=== PATIENT | male | born 1960 | race Caucasian/White ===

== ENCOUNTER 2022-01-27 09:25 | Inpatient (IN) ==
[2022-01-27] MEDS ORDERED: Ketorolac 60 MG/2 ML VIAL IM ONE (10:39)
[2022-01-27] MEDS ORDERED: *HR* HYDROmorphone (PF) 1 MG/ML SYRINGE IVP ONE (11:10)
[2022-01-27 11:36] LABS: Basophils # 0.1 K/mcL (0.0-0.2); Basophils % 0.6 %; Eosinophils # 0.3 K/mcL (0.0-0.6); Eosinophils % 2.3 %; Hematocrit 40.3 % (37.5-50.1); Immature Granulocytes % 0.4 % (0-4); Lymphocytes # 1.9 K/mcL (0.6-4.6); Lymphocytes % 15.4 %; Mean Corpuscular HGB Conc 32.3 g/dL (31.6-35.5); Mean Corpuscular Hemoglobin 27.5 pg (28.0-33.3); Mean Corpuscular Volume 85.4 fL (83.0-100.0); Mean Platelet Volume 10.3 fL (9.4-12.4); Monocytes # 0.9 K/mcL (0.0-1.3); Monocytes % 7.4 %; Neutrophils # 9.1 K/mcL (1.6-8.9); Platelet Count 437 K/mcL (140-400); Red Blood Count 4.72 M/mcL (4.19-5.50); Red Cell Distribution Width 12.4 % (11.5-14.5); Segmented Neutrophils % 73.9 %; White Blood Count 12.4 K/mcL (4.3-11.1)
[2022-01-27 12:05] LABS: Bacteria,Urine Moderate per hpf (None-Few); Bilirubin,Urine Negative (Negative); Blood,Urine Moderate (Negative); Clarity,Urine Ex.Turbid (Clear); Color,Urine Yellow (Yellow); Glucose,Urine (UA) Normal (Normal); Ketones,Urine Negative (Negative); Leukocyte Esterase,Urine Large (Negative); Mucus,Urine Few per lpf (None-Few); Nitrite,Urine Negative (Negative); PH,Urine 6.5 pH Units (5.0-8.0); Protein,Urine 50 mg/dL (Neg-Trace); RBC,Urine 50-100 per hpf (0-3); Urobilinogen,Urine Normal (Normal); WBC,Urine TNTC per hpf (0-3)
[2022-01-27 12:05] LABS: INR 1.1; Prothrombin Time 12.4 Seconds (9.4-12.1)
[2022-01-27 12:08] LABS: Activated Partial Thrombo Time 36.7 Seconds (26.0-36.0)
[2022-01-27] MEDS ORDERED: cefTRIAXone 1,000 MG in 0.9 % Sodium Chloride 10 ML IVP ONE (12:08)
[2022-01-27 12:14] LABS: Alanine Aminotransferase 10 Units/L (7-52); Albumin 3.6 g/dL (3.5-5.7); Alkaline Phosphatase 79 Units/L (34-104); Aspartate Amino Transferase 12 Units/L (13-39); BUN/Creatinine Ratio 14 (6-26); Bilirubin,Total 0.4 mg/dL (0.3-1.0); Blood Urea Nitrogen 15 mg/dL (8-23); Calcium 9.8 mg/dL (8.6-10.3); Carbon Dioxide 32 mEq/L (23-29); Chloride 101 mEq/L (98-107); Globulin 3.5 g/dL (2.4-3.5); Glucose 99 mg/dL (70-105); Osmolality,Calculated 287 (280-300); Potassium 4.3 mEq/L (3.5-5.1); Sodium 138 mEq/L (136-145); Total Protein 7.1 g/dL (6.4-8.9); eGFR For African Americans > 60 (> 60); eGFR For Non-African Americans > 60 (> 60)
[2022-01-27 13:04] LABS: Troponin I < 0.03 ng/mL (< 0.04)
[2022-01-27] MEDS ORDERED: Acetaminophen 325 MG TABLET PO PRN (13:52)
[2022-01-27] MEDS ORDERED: *HR* HYDROcodone/Acet 5/325 mg TABLET PO PRN (13:52)
[2022-01-27] MEDS ORDERED: Ondansetron 4 MG/2 ML VIAL IVP PRN (13:52)
[2022-01-27] MEDS ORDERED: Naloxone 0.4 MG/ML INJ IVP PRN (13:52)
[2022-01-27] MEDS ORDERED: Ipratropium/Albuterol Neb 3 ML IH PRN (14:05)
[2022-01-27] MEDS: Nicotine 21 MG PATCH.TD24 TD SCH (17:49)
[2022-01-27] MEDS: *HR* OxyCODONE Immed Rel 5 MG TABLET PO PRN ×2 (17:49→23:48)
[2022-01-28] MEDS ORDERED: ALPRAZolam 1 MG TABLET PO ONE (05:27)
[2022-01-28 05:37] LABS: Basophils # 0.1 K/mcL (0.0-0.2); Basophils % 1.1 %; Eosinophils # 0.5 K/mcL (0.0-0.6); Eosinophils % 5.4 %; Hematocrit 41.1 % (37.5-50.1); Hemoglobin 13.2 g/dL (12.9-16.9); Immature Granulocytes % 0.3 % (0-4); Lymphocytes % 22.8 %; Mean Corpuscular HGB Conc 32.1 g/dL (31.6-35.5); Mean Corpuscular Hemoglobin 27.7 pg (28.0-33.3); Mean Corpuscular Volume 86.2 fL (83.0-100.0); Mean Platelet Volume 10.4 fL (9.4-12.4); Monocytes # 0.9 K/mcL (0.0-1.3); Monocytes % 10.4 %; Neutrophils # 5.3 K/mcL (1.6-8.9); Platelet Count 409 K/mcL (140-400); Red Blood Count 4.77 M/mcL (4.19-5.50); Red Cell Distribution Width 12.6 % (11.5-14.5); White Blood Count 8.8 K/mcL (4.3-11.1)
[2022-01-28] MEDS ORDERED: *HR* HYDROmorphone PF 0.5 MG/0.5 ML SYRINGE IVP PRN (06:37)
[2022-01-28] MEDS ORDERED: Albuterol 2.5 MG/3 ML NEBULIZER IH PRN (06:37)
[2022-01-28] MEDS ORDERED: *HR* FentaNYL (PF) 100 MCG/2 ML VIAL IVP PRN (06:37)
[2022-01-28 06:54] LABS: BUN/Creatinine Ratio 20 (6-26); Blood Urea Nitrogen 23 mg/dL (8-23); Calcium 8.2 mg/dL (8.6-10.3); Carbon Dioxide 30 mEq/L (23-29); Chloride 100 mEq/L (98-107); Glucose 108 mg/dL (70-105); Osmolality,Calculated 290 (280-300); Potassium 4.8 mEq/L (3.5-5.1); Sodium 138 mEq/L (136-145); eGFR For African Americans > 60 (> 60); eGFR For Non-African Americans > 60 (> 60)
[2022-01-28] MEDS ORDERED: Albuterol 2.5 MG/3 ML NEBULIZER IH ONE (07:07)
[2022-01-28] MEDS ORDERED: Ringers Solution, Lactated 1,000 ML IVC SCH ×2 (07:15→12:05)
[2022-01-28] MEDS ORDERED: *HR* FentaNYL (PF) 100 MCG/2 ML VIAL ONE (07:26)
[2022-01-28] MEDS ORDERED: *HR* Propofol 200 MG/20 ML VIAL IVP ONE (07:27)
[2022-01-28] MEDS ORDERED: *HR* Midazolam HCl 2 MG/2 ML VIAL ONE (07:27)
[2022-01-28] MEDS ORDERED: Povidone-Iodine 45 ML, Sodium Chloride IRRigation 1,000 ML IR ONE (08:15)
[2022-01-28] MEDS ORDERED: TOTAL JOINT MIXTURE (100ML) INTRAART ONE (08:15)
[2022-01-28] MEDS ORDERED: EPHEDrine 50 MG/ML VIAL ONE (08:32)
[2022-01-28] MEDS ORDERED: Vancomycin 1,000 MG VIAL ONE (08:52)
[2022-01-28] MEDS ORDERED: Tranexamic Acid 1,000 MG/10 ML VIAL ONE (09:27)
[2022-01-28] MEDS ORDERED: Ipratropium/Albuterol Neb 3 ML IH PRN (12:05)
[2022-01-28] MEDS ORDERED: *HR* Promethazine 25 MG/ML VIAL IM PRN (12:05)
[2022-01-28] MEDS ORDERED: Acetaminophen 325 MG TABLET PO PRN (12:05)
[2022-01-28] MEDS ORDERED: Sennosides 8.6 MG TABLET PO PRN (12:05)
[2022-01-28] MEDS ORDERED: Ondansetron 4 MG/2 ML VIAL IVP PRN ×2 (12:05)
[2022-01-28] MEDS ORDERED: Naloxone 0.4 MG/ML INJ IVP PRN ×2 (12:05)
[2022-01-28] MEDS ORDERED: *HR* HYDROcodone/Acet 5/325 mg TABLET PO PRN (12:05)
[2022-01-28] MEDS ORDERED: *HR* OxyCODONE Immed Rel 5 MG TABLET PO PRN ×2 (12:05)
[2022-01-28] MEDS: Ketorolac 30 MG/ML VIAL IVP SCH ×2 (12:42→17:19)
[2022-01-28] MEDS ORDERED: cefTRIAXone 1,000 MG in 0.9 % Sodium Chloride 10 ML IVP SCH (14:00)
[2022-01-28] MEDS: *HR* OxyCODONE Immed Rel 5 MG TABLET PO PRN (17:21)
[2022-01-28] MEDS: Ascorbic Acid 500 MG TABLET PO SCH (17:21)
[2022-01-28] MEDS: Nicotine 21 MG PATCH.TD24 TD SCH (17:22)
[2022-01-28] MEDS: CeFAZolin 2 GM/120 ML BAG IVPB SCH (18:32)
[2022-01-28] MEDS: Aspirin 81 MG TAB.CHEW PO SCH (20:14)
[2022-01-28] MEDS ORDERED: MOM Conc 10 ML UD.LIQ PO PRN (21:00)
[2022-01-29] MEDS: Ketorolac 30 MG/ML VIAL IVP SCH ×5 (00:26→23:20)
[2022-01-29] MEDS: CeFAZolin 2 GM/120 ML BAG IVPB SCH (00:45)
[2022-01-29] MEDS: *HR* OxyCODONE Immed Rel 5 MG TABLET PO PRN (04:21)
[2022-01-29 05:17] LABS: Basophils # 0.1 K/mcL (0.0-0.2); Basophils % 0.6 %; Eosinophils # 0.4 K/mcL (0.0-0.6); Eosinophils % 4.1 %; Hematocrit 34.8 % (37.5-50.1); Immature Granulocytes % 0.3 % (0-4); Lymphocytes # 1.1 K/mcL (0.6-4.6); Lymphocytes % 12.7 %; Mean Corpuscular HGB Conc 32.8 g/dL (31.6-35.5); Mean Corpuscular Hemoglobin 27.9 pg (28.0-33.3); Mean Corpuscular Volume 85.3 fL (83.0-100.0); Mean Platelet Volume 10.2 fL (9.4-12.4); Monocytes # 0.6 K/mcL (0.0-1.3); Neutrophils # 6.6 K/mcL (1.6-8.9); Platelet Count 348 K/mcL (140-400); Red Blood Count 4.08 M/mcL (4.19-5.50); Red Cell Distribution Width 12.4 % (11.5-14.5); Segmented Neutrophils % 75.3 %; White Blood Count 8.8 K/mcL (4.3-11.1)
[2022-01-29 05:21] LABS: Hemoglobin 11.4 g/dL (12.9-16.9)
[2022-01-29 05:28] LABS: BUN/Creatinine Ratio 17 (6-26); Blood Urea Nitrogen 15 mg/dL (8-23); Calcium 8.3 mg/dL (8.6-10.3); Carbon Dioxide 29 mEq/L (23-29); Chloride 101 mEq/L (98-107); Glucose 104 mg/dL (70-105); Osmolality,Calculated 281 (280-300); Potassium 4.2 mEq/L (3.5-5.1); Sodium 135 mEq/L (136-145); eGFR For African Americans > 60 (> 60); eGFR For Non-African Americans > 60 (> 60)
[2022-01-29] MEDS: Ascorbic Acid 500 MG TABLET PO SCH ×2 (09:35→18:21)
[2022-01-29] MEDS: Aspirin 81 MG TAB.CHEW PO SCH ×2 (09:36→20:41)
[2022-01-29] MEDS: Nicotine 21 MG PATCH.TD24 TD SCH (09:36)
[2022-01-29] MEDS: Multivit/Ca/Min/Fe/FA 1 TAB TABLET PO SCH (09:36)
[2022-01-29] MEDS: cefTRIAXone 1,000 MG in 0.9 % Sodium Chloride 10 ML IVP SCH (09:36)
[2022-01-29] MEDS: Famotidine 20 MG TABLET PO SCH (21:26)
[2022-01-30] MEDS: *HR* OxyCODONE Immed Rel 5 MG TABLET PO PRN ×3 (01:33→12:07)
[2022-01-30 03:30] LABS: Basophils # 0.1 K/mcL (0.0-0.2); Basophils % 0.8 %; Eosinophils # 0.4 K/mcL (0.0-0.6); Eosinophils % 4.6 %; Hematocrit 32.3 % (37.5-50.1); Hemoglobin 10.5 g/dL (12.9-16.9); Immature Granulocytes % 0.4 % (0-4); Lymphocytes % 11.2 %; Mean Corpuscular HGB Conc 32.5 g/dL (31.6-35.5); Mean Corpuscular Hemoglobin 27.5 pg (28.0-33.3); Mean Corpuscular Volume 84.6 fL (83.0-100.0); Mean Platelet Volume 10.5 fL (9.4-12.4); Monocytes # 0.9 K/mcL (0.0-1.3); Monocytes % 9.3 %; Neutrophils # 6.8 K/mcL (1.6-8.9); Platelet Count 353 K/mcL (140-400); Red Blood Count 3.82 M/mcL (4.19-5.50); Red Cell Distribution Width 12.5 % (11.5-14.5); Segmented Neutrophils % 73.7 %; White Blood Count 9.3 K/mcL (4.3-11.1)
[2022-01-30 03:51] LABS: BUN/Creatinine Ratio 19 (6-26); Blood Urea Nitrogen 17 mg/dL (8-23); Calcium 8.6 mg/dL (8.6-10.3); Carbon Dioxide 27 mEq/L (23-29); Chloride 103 mEq/L (98-107); Glucose 114 mg/dL (70-105); Osmolality,Calculated 286 (280-300); Potassium 4.2 mEq/L (3.5-5.1); Sodium 137 mEq/L (136-145); eGFR For African Americans > 60 (> 60); eGFR For Non-African Americans > 60 (> 60)
[2022-01-30] MEDS: Ketorolac 30 MG/ML VIAL IVP SCH ×2 (05:58→12:07)
[2022-01-30] MEDS: Famotidine 20 MG TABLET PO SCH (09:16)
[2022-01-30] MEDS: Multivit/Ca/Min/Fe/FA 1 TAB TABLET PO SCH (09:16)
[2022-01-30] MEDS: Aspirin 81 MG TAB.CHEW PO SCH (09:16)
[2022-01-30] MEDS: Nicotine 21 MG PATCH.TD24 TD SCH (09:17)
[2022-01-30] MEDS: cefTRIAXone 1,000 MG in 0.9 % Sodium Chloride 10 ML IVP SCH (09:17)
[2022-01-30] MEDS: Ascorbic Acid 500 MG TABLET PO SCH (09:17)
[2022-01-30 11:42] VITALS: BP 121/68; PULSE 87; TEMP 98; O2SAT 98
== END 2022-01-30 13:21 | disposition home or self-care (01) | DRG 522 ==
LOC: 4WAOSI 09:25 → EMEROOARM 09:25 → SUATTDRO 16:06 → 4WAOSI 18:28 → SUATTDRO 01-28 12:35
PROVIDERS: ADMIT General Practice; ATTEND Family Medicine